=== PATIENT | male | born 1965 | race Caucasian/White ===

== ENCOUNTER 2017-04-11 06:30 | Day surgery (SDC) | payer OTHER ==
[~2017-04-11 06:30] MED LIST: Lactated Ringers 1,000 ML IV SCH; Lidocaine 1%/Sod Bicarbonate in NS 8.4% 1 ML Syringe PRN; Sodium Chloride 0.9% 10 ML Syringe FLUSH PRN
[2017-04-11] MEDS ORDERED: Propofol 200 MG/20 ML SDV ONE (06:58)
[2017-04-11] MEDS ORDERED: Ondansetron 4 MG/2 ML SDV ONE (06:58)
[2017-04-11] MEDS ORDERED: Midazolam 1 MG/ML 2 ML SDV ONE (06:59)
[2017-04-11] MEDS ORDERED: fentaNYL 250 MCG/5 ML SDV ONE (06:59)
[2017-04-11] MEDS ORDERED: ceFAZolin 1 GM Vial ONE (07:00)
[2017-04-11] MEDS ORDERED: Bupivacaine 0.25% 10 ML SDV ONE (07:03)
[2017-04-11] MEDS ORDERED: EPINEPHrine 1 MG/ML 30 ML MDV ONE (07:03)
--- NOTE | 2017-04-11 07:04 | PCM.PREANE ---
Preanesthetic Assessment - Anesthesia/Transfusion/Family Hx Anesthesia History: Prior Anesthesia Without Reaction Family History of Anesthesia Reaction: No Transfusion History: No Prior Transfusion(s) - Review of Systems General: No Symptoms Pulmonary: No Symptoms Cardiovascular: No Symptoms Gastrointestinal: No Symptoms Neurological: No Symptoms Other: Reports: None - Physical Assessment NPO Status Date: 04/10/17 NPO Status Time: 00:00 Pulse: 79 O2 Sat by Pulse Oximetry: 94 Respiratory Rate: 16 Blood Pressure: 127/79 Temperature: 36.7 C Height: 1.78 m Weight: 104.6 kg ASA Class: 2 Mental Status: Alert & Oriented x3 Airway Class: Mallampati = 1 Dentition: Reports: Normal Dentition Thyro-Mental Finger Breadths: 3 Mouth Opening Finger Breadths: 3 ROM/Head Extension: Full Lungs: Clear to Auscultation, Normal Respiratory Effort Cardiovascular: Regular Rate, Regular Rhythm - Lab Values: Laboratory Last Values MRSA (PCR) Negative 04/09/17 14:10 - Allergies Allergies/Adverse Reactions: Allergies Allergy/AdvReac Type Severity Reaction Status Date / Time ampicillin Allergy Cannot Verified 04/10/17 16:33 Remember Penicillins Allergy Cannot Verified 04/10/17 16:33 Remember - Anesthesia Plan Pre-Op Medication Ordered: Beta Swathi Beta Swathi: Metoprolol Med Last Dose Date: 04/10/17 Med Last Dose Time: 22:00 - Acknowledgements Anesthesia Type Planned: General Anesthesia Pt an Appropriate Candidate for the Planned Anesthesia: Yes Alternatives and Risks of Anesthesia Discussed w Pt/Guardian: Yes Pt/Guardian Understands and Agrees with Anesthesia Plan: Yes PreAnesthesia Questionnaire HEENT History: Reports: Impaired Vision, Other (See Below) Other HEENT History: wears glasses Cardiovascular History: Reports: Other (See Below) Other Cardiovascular History: SVT 20 years ago, EP study done and believes an ablation was done, on metoprolol with no complications since Respiratory History: Reports: None Genitourinary History: Reports: None BEEF CATTLE SPECIALIST History: Reports: None Musculoskeletal History: Reports: Other (See Below) Neurological History: Reports: None Psychiatric History: Reports: None Endocrine/Metabolic History: Reports: None Hematologic History: Reports: None Immunologic History: Reports: None Oncologic (Cancer) History: Reports: None Dermatologic History: Reports: None - Past Surgical History Head Surgeries/Procedures: Reports: None Respiratory Surgical History: Reports: None GI Surgical History: Reports: Colonoscopy, Hernia Repair/Other, Other (See Below ) Other GI Surgeries/Procedures: splenectomy Female Surgical History: Reports: None Male Surgical History: Reports: None Endocrine Surgical History: Reports: None Neurological Surgical History: Reports: None Musculoskeletal Surgical History: Reports: Other (See Below) Other Musculoskeletal Surgeries/Procedures:: L ACL repair, left and right knee arthroscopy, left and right shoulder arthroscopy, L wrist surgery Oncologic Surgical History: Reports: None Dermatological Surgical History: Reports: None - SUBSTANCE USE Smoking Status *Q: Current Every Day Smoker Tobacco Use Within Last Twelve Months: Snuff/Dip Recreational Drug Use History: No - HOME MEDS Home Medications: Home Meds Aspirin [Halfprin] 81 mg PO DAILY 04/10/17 [History] Metoprolol Succinate [Toprol XL] 25 mg PO DAILY 04/10/17 [History] - CURRENT (IN HOUSE) MEDS Current Meds: Current Medications Lactated Ringer's (Ringers, Lactated) 1,000 mls @ 125 mls/hr IV ASDIRECTED CARI Stop: 04/11/17 23:00 Lidocaine/Sodium Bicarbonate (Buffered Lidocaine 1% In Ns 8.4%) 0.25 ml .XX ONETIME PRN PRN Reason: Prior to IV Start Stop: 04/11/17 18:00 Sodium Chloride (Saline Flush) 10 ml FLUSH ASDIRECTED PRN PRN Reason: Keep Vein Open Stop: 04/11/17 18:00 Discontinued Medications Cefazolin Sodium (Ancef) Confirm Administered Dose 2 gm .ROUTE .STK-MED ONE Stop: 04/11/17 07:01 Fentanyl (Sublimaze) Confirm Administered Dose 250 mcg .ROUTE .STK-MED ONE Stop: 04/11/17 07:00 Midazolam HCl (Versed 1 Mg/Ml) Confirm Administered Dose 2 mg .ROUTE .STK-MED ONE Stop: 04/11/17 07:00 Ondansetron HCl (Zofran) Confirm Administered Dose 4 mg .ROUTE .STK-MED ONE Stop: 04/11/17 06:59 Propofol (Diprivan 20 Ml) Confirm Administered Dose 200 mg .ROUTE .STK-MED ONE Stop: 04/11/17 06:59
[2017-04-11] MEDS ORDERED: HYDROmorphone 1 MG/ML Syringe ONE (07:44)
[2017-04-11] MEDS ORDERED: Ketorolac 30 MG/ML SDV ONE (08:03)
[2017-04-11] MEDS ORDERED: Triamcinolone Acetonide 40 MG/ML 1 ML MDV ONE (08:05)
[2017-04-11] MEDS ORDERED: Lactated Ringers 1,000 ML ONE (08:09)
[2017-04-11] MEDS ORDERED: fentaNYL 100 MCG/2 ML SDV IVPUSH PRN (08:19)
[2017-04-11] MEDS ORDERED: HYDROmorphone 0.5 MG/0.5 ML Syringe IVPUSH PRN (08:19)
--- NOTE | 2017-04-11 08:21 | PCM.POSTAN ---
POST ANESTHESIA ASSESSMENT - MENTAL STATUS Mental Status: Alert, Oriented - VITAL SIGNS Pulse Rate: 76 SaO2: 95 Resp Rate: 12 Blood Pressure: 146/87 Temperature: 37.0 C - RESPIRATORY Respiratory Status: Respiratory Rate WNL, Airway Patent, O2 Saturation Stable, Supplemental Oxygen - CARDIOVASCULAR CV Status: Pulse Rate WNL, Blood Pressure Stable - GASTROINTESTINAL GI Status: No Symptoms - PAIN Pain Score: 0 - POST OP HYDRATION Hydration Status: Adequate & Stable - OBSERVATIONS Free Text/Narrative:: no anesthesia complications noted
--- NOTE | 2017-04-11 10:07 | PCM.OPNOTE ---
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
--- NOTE | 2017-04-11 10:42 | OR ---
DATE OF OPERATION: 04/11/2017 SURGEON: Dwayne Nova MD OPERATION PERFORMED: Right knee video arthroscopy with partial medial meniscectomy and intraarticular steroid injection. PREOPERATIVE DIAGNOSIS: Right knee medial meniscus tear. 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 ANESTHESIA: General LMA with local. ANESTHESIA PROVIDER: Edin Ribeiro JEWEL LATHE OPERATOR: Danette Melton PA-C. ESTIMATED BLOOD LOSS: Less than 5 mL. COMPLICATIONS: None. CONDITION: Stable. DESCRIPTION OF PROCEDURE: The patient was identified in the preop holding area. Proper site was marked and identified by the surgeon. The patient was taken back to the operating theater, where after adequate anesthesia, the patient's left lower extremity was placed in a well-leg hoyt and the right lower extremity was placed in a nonsterile tourniquet and a C-clamp hoyt. Right lower extremity was then sterilely prepped and draped in the usual sterile fashion. OR time-out was performed. The patient received 2 g IV Ancef. At this time, right lower extremity was exsanguinated and tourniquet was insufflated to 300 mmHg. Standard anterolateral portal incision was made. The scope trocar was introduced. There was noted to be a large effusion, which was irrigated out at this time. The patient was noted to have grade 3 chondromalacia of the patella as well as grade 3/4 chondromalacia of the trochlea with eburnated bone noted on the medial side of the trochlea. Attention was turned to the medial compartment. With use of the spinal needle, anterior medial portal was created. There was noted to be a diffuse tear of the posterior horn of the medial meniscus but otherwise the posterior horn was stable. The rim of the tear was then removed. It was found to be otherwise stable and was brought back to a stable surface. All loose bodies were removed from the knee. The patient was noted to have grade 2 chondromalacia of the medial femoral condyle. No chondromalacia of the tibia. ACL was found to be intact and the notch the lateral side show only grade 1 chondromalacia. At this time, it was found there were no loose foreign bodies. Excess saline was drained from the knee. We did debride the fat pad some near the patella. At this time, it was decided we would do an intra-articular steroid injection at this time. After all saline was drained from the knee, 2 mL 40 mg Kenalog, 4 mL 0.25% Marcaine were injected to the right knee. The patient tolerated that as well. Sterile soft dressing was applied after two nylon simple sutures were placed. The patient was sent to the PACU in stable condition. MARGOTH /[id number]
[2017-04-11 11:14] VITALS: BP 115/75
== END 2017-04-11 10:30 | disposition home or self-care (01) ==
LOC: JD.SDS 06:30
PROVIDERS: ATTEND Orthopaedic Surgery
DX: S83.241A Other tear of medial meniscus, current injury, right knee, initial encounter (principal); M94.261 Chondromalacia, right knee; F17.220 Nicotine dependence, chewing tobacco, uncomplicated; E78.00 Pure hypercholesterolemia, unspecified; Z90.81 Acquired absence of spleen; Z98.890 Other specified postprocedural states; Z88.0 Allergy status to penicillin; Z79.82 Long term (current) use of aspirin; Z79.899 Other long term (current) drug therapy
CPT/HCPCS: 20610; 29881; 87641; J0171; J0690; J1170; J1885; J2250; J2405; J3010; J3301; J7120; 01400; J2704

== ENCOUNTER → 2025-04-27 | Day surgery (SDC) | payer BC ==
[~2025-04-27] MED LIST changes: +Lactated Ringers 1,000 ML ONE; -Lidocaine 1%/Sod Bicarbonate in NS 8.4% 1 ML Syringe PRN; +Midazolam 1 MG/ML 2 ML SDV ONE; +Ondansetron 4 MG/2 ML SDV IVPUSH PRN; +Ondansetron 4 MG/2 ML SDV ONE; +Propofol 200 MG/20 ML SDV ONE; +Ropivacaine 0.5% 5 MG/ML 30 ML SDV ONE; +Sodium Chloride 0.9% 10 ML Syringe FLUSH SCH; +dexmedeTOMIDine HCl 200 MCG/2 ML SDV ONE; +fentaNYL 100 MCG/2 ML SDV IVPUSH PRN; +fentaNYL 100 MCG/2 ML SDV ONE
[2025-04-27] MEDS: Lactated Ringers 1,000 ML IV SCH (07:10)
[2025-04-27] MEDS: oxyCODONE ER 10 MG TAB.ER PO SCH (07:18)
[2025-04-27] MEDS: Morphine 8 MG, EPINEPHrine 0.3 MG, Cefuroxime 750 MG, Ketorolac 30 MG, Sodium Chloride ... PRN (09:15)
[2025-04-27 11:41] VITALS: PULSE 77
[2025-04-27 12:27] VITALS: BP 118/70
== END | disposition home or self-care (01) ==
LOC: JD.SDS 06:45
PROVIDERS: ATTEND Orthopaedic Surgery
DX: M17.11 Unilateral primary osteoarthritis, right knee (principal); E66.9 Obesity, unspecified; F17.290 Nicotine dependence, other tobacco product, uncomplicated; Z88.0 Allergy status to penicillin; Z88.1 Allergy status to other antibiotic agents; Z68.34 Body mass index [BMI] 34.0-34.9, adult; Z79.82 Long term (current) use of aspirin; Z79.899 Other long term (current) drug therapy
CPT/HCPCS: 0055T; 27447; 64447; 73560; 97116; 97161; A9270; C1713; C1776; J0169; J0690; J0697; J1885; J2250; J2272; J2405; J2704; J2795; J3010; J3373; J7120

== ENCOUNTER 2025-07-21 06:00 | Day surgery (SDC) | payer BC ==
[~2025-07-21 06:00] MED LIST changes: -Lactated Ringers 1,000 ML ONE; -Midazolam 1 MG/ML 2 ML SDV ONE; +Morphine 8 MG, EPINEPHrine 0.3 MG, Cefuroxime 750 MG, Ketorolac 30 MG, Sodium Chloride ... PRN; -Ondansetron 4 MG/2 ML SDV IVPUSH PRN; -Ondansetron 4 MG/2 ML SDV ONE; -Propofol 200 MG/20 ML SDV ONE; -Ropivacaine 0.5% 5 MG/ML 30 ML SDV ONE; -dexmedeTOMIDine HCl 200 MCG/2 ML SDV ONE; -fentaNYL 100 MCG/2 ML SDV IVPUSH PRN; -fentaNYL 100 MCG/2 ML SDV ONE
[2025-07-21] MEDS ORDERED: propofoL 500 MG/50 ML 50 ML ONE (06:20)
[2025-07-21] MEDS ORDERED: Midazolam 1 MG/ML 2 ML SDV ONE (06:20)
[2025-07-21] MEDS: Lactated Ringers 1,000 ML IV SCH (06:20)
[2025-07-21] MEDS ORDERED: Ondansetron 4 MG/2 ML SDV ONE (06:20)
[2025-07-21] MEDS ORDERED: dexmedeTOMIDine HCl 200 MCG/2 ML SDV ONE (06:20)
[2025-07-21] MEDS ORDERED: Ondansetron 4 MG/2 ML SDV IVPUSH PRN (06:39)
[2025-07-21] MEDS ORDERED: fentaNYL 100 MCG/2 ML SDV IVPUSH PRN (06:39)
[2025-07-21] MEDS: oxyCODONE ER 10 MG TAB.ER PO ONE (06:47)
[2025-07-21] MEDS ORDERED: Ropivacaine 0.5% 5 MG/ML 30 ML SDV ONE (07:26)
[2025-07-21] MEDS ORDERED: ePHEDrine 50 MG/ML SDV ONE (07:43)
[2025-07-21] MEDS ORDERED: Lactated Ringers 1,000 ML ONE (07:59)
[2025-07-21] MEDS ORDERED: Propofol 200 MG/20 ML SDV ONE (07:59)
[2025-07-21] MEDS: Morphine 8 MG, EPINEPHrine 0.3 MG, Cefuroxime 750 MG, Ketorolac 30 MG, Sodium Chloride ... PRN (08:09)
[2025-07-21 11:35] VITALS: BP 103/65; PULSE 74
== END 2025-07-21 13:38 | disposition home or self-care (01) ==
LOC: JD.SDS 06:00
PROVIDERS: ATTEND Orthopaedic Surgery
DX: M17.12 Unilateral primary osteoarthritis, left knee (principal); I10 Essential (primary) hypertension; F17.200 Nicotine dependence, unspecified, uncomplicated; Z79.899 Other long term (current) drug therapy
CPT/HCPCS: 0055T; 27447; 73560; 97110; 97116; 97161; A9270; J0169; J0690; J0697; J1885; J2250; J2272; J2405; J2704; J2795; J3373; J7120; C1713; C1776; J3490